=== PATIENT | female | born 1995 | race Hispanic/Latino ===

== ENCOUNTER 2021-10-19 09:05 | Outpatient (CLI) | payer BC, OTHER ==
[2021-10-19 22:44] LABS: SARS-CoV-2 PCR by NAA Not Detected (NotDetected)
== END 2021-10-19 09:06 | disposition home or self-care (01) ==
LOC: CSHLAB 09:05
PROVIDERS: ATTEND Family Medicine
DX: Z20.822 Contact with and (suspected) exposure to COVID-19 (principal)
CPT/HCPCS: U0003; U0005

== ENCOUNTER 2021-10-21 14:51 | Inpatient (IN) | payer BC, OTHER ==
[~2021-10-21 14:51] MED LIST: Bupivacaine 0.25% HCL 30 ML VIAL ONE
[2021-10-21] MEDS ORDERED: Ibuprofen 800 MG TAB PO PRN (23:16)
[2021-10-21] MEDS ORDERED: Diphenoxylate HCl/Atropine Tablet PO PRN (23:16)
[2021-10-21] MEDS ORDERED: Butorphanol Tartrate 1 MG/ML VIAL SLOW IVP PRN (23:16)
[2021-10-21] MEDS ORDERED: hydrALAZINE 20 MG/ML VIAL SLOW IVP PRN (23:16)
[2021-10-21] MEDS ORDERED: Misoprostol 200 MCG TAB PR PRN (23:16)
[2021-10-21] MEDS ORDERED: Lidocaine 1% (PF) 30 ML VIAL SC PRN (23:16)
[2021-10-21] MEDS ORDERED: HYDROcodone/Acetaminophen 5/325 mg Tablet PO PRN (23:16)
[2021-10-21] MEDS ORDERED: Methylergonovine 0.2 MG/ML VIAL IM PRN (23:16)
[2021-10-21] MEDS ORDERED: Ondansetron PF 4 MG/2 ML Vial IVP PRN (23:16)
[2021-10-21] MEDS ORDERED: Acetaminophen 500 MG TAB PO PRN (23:16)
[2021-10-21] MEDS ORDERED: Promethazine HCl 25 MG/ML VIAL IM PRN (23:16)
[2021-10-21] MEDS ORDERED: Penicillin G Potassium 5 MILL.UNITS in Sodium Chloride 0.9% 100 ML IVPB SCH (23:16)
[2021-10-21] MEDS ORDERED: Carboprost 250 MCG/ML AMP IM PRN (23:16)
[2021-10-21 23:17] VITALS: BMI 32.5
[2021-10-21] MEDS: Misoprostol 100 MCG TAB PO SCH (23:56)
[2021-10-21] MEDS ORDERED: NS w/ Oxytocin 30 units 500 ML IV SCH (23:59)
[2021-10-22 00:11] LABS: Hemoglobin 12.2 g/dL (12.0-15.5); Mean Corpuscular HGB CONC 34.4 g/dL (32.0-36.0); Mean Corpuscular Hemoglobin 30.3 pg (27.0-33.0); Mean Corpuscular Volume 88.3 fl (81.6-98.3); Mean Platelet Volume 8.8 fl (7.4-10.4); Platelet Count 308 10x3/uL (150-450); RBC Distribution Width 14.6 % (11.5-14.5); Red Blood Cell (RBC) Count 4.02 10x6/uL (3.90-5.03); White Blood Cell (WBC) Count 11.2 10x3/uL (3.5-10.5)
[2021-10-22 00:32] LABS: Hep B Surf Ag Non-Reactive S/CO (NonReactive); Syphilis Antibody Nonreactive (Nonreactive); Syphilis Antibody Index 0.08 S/CO (<1.00 Non-Reactive)
[2021-10-22] MEDS ORDERED: Fentanyl 2 mcg/Bup 0.1% Cadd 100 ML ONE (05:35)
[2021-10-22] MEDS: Lactated Ringer's 1,000 ML IV SCH ×2 (05:53→09:14)
[2021-10-22] MEDS ORDERED: ePHEDrine Sulfate 50 MG/10 ML VIAL SLOW IVP PRN (06:28)
[2021-10-22] MEDS ORDERED: Promethazine HCl 25 MG/ML VIAL IM PRN ×2 (06:28→10:38)
[2021-10-22] MEDS ORDERED: Ondansetron PF 4 MG/2 ML Vial IVP PRN ×2 (06:28→10:38)
[2021-10-22] MEDS ORDERED: diphenhydrAMINE 50 MG/ML VIAL IVP PRN (06:28)
[2021-10-22] MEDS ORDERED: Lactated Ringer's 500 ML IV PRN (06:28)
[2021-10-22] MEDS ORDERED: Hydrocerin (Eucerin) Cream 120 gm Jar TOP PRN (06:28)
[2021-10-22] MEDS ORDERED: Naloxone HCl 0.4 mg/ml Vial IVP PRN ×2 (06:28)
[2021-10-22] MEDS ORDERED: Acetaminophen 325 MG TAB PO PRN (06:28)
[2021-10-22] MEDS ORDERED: Fentanyl 2 mcg/Bupivacaine 0.1% Cassette 100 ML EPIDURAL SCH (06:30)
[2021-10-22] MEDS ORDERED: Communication Order-Pharmacy FS SCH (06:30)
[2021-10-22] MEDS: NS w/ Oxytocin 30 units 500 ML IV SCH ×2 (08:46→09:13)
[2021-10-22] MEDS: Misoprostol 100 MCG TAB PO SCH (09:13)
[2021-10-22] MEDS: Penicillin G 2.5 MILL.units 2.5 MILL.UNITS in Premix Bag 1 BAG IVPB SCH (09:14)
[2021-10-22] MEDS ORDERED: Benzocaine-Menthol 82.5 ML CAN TOP PRN (10:38)
[2021-10-22] MEDS ORDERED: Lanolin Ointment 7 GM TUBE TOP PRN (10:38)
[2021-10-22] MEDS ORDERED: Milk Of Magnesia 30 ML UDCUP PO PRN (10:38)
[2021-10-22] MEDS ORDERED: Boostrix 0.5 ML (Tdap) VIAL IM ONE (10:38)
[2021-10-22] MEDS ORDERED: NS w/ Oxytocin 30 units 500 ML IV SCH (10:38)
[2021-10-22] MEDS ORDERED: Bisacodyl 10 MG SUPP PR PRN (10:38)
[2021-10-22] MEDS ORDERED: hydrALAZINE 20 MG/ML VIAL SLOW IVP PRN (10:38)
[2021-10-22] MEDS ORDERED: HYDROcodone/Acetaminophen 5/325 mg Tablet PO PRN (10:38)
[2021-10-22] MEDS ORDERED: diphenhydrAMINE 25 MG CAP PO PRN (10:38)
[2021-10-22] MEDS ORDERED: Ibuprofen 800 MG TAB PO SCH (16:00)
[2021-10-22] MEDS: Ferrous Sulfate 325 MG TAB PO SCH (17:34)
[2021-10-22] MEDS: Docusate 100 MG CAP PO SCH (20:55)
[2021-10-23] MEDS ORDERED: Ibuprofen 800 MG TAB PO SCH (06:00)
[2021-10-23] MEDS: Ferrous Sulfate 325 MG TAB PO SCH (07:18)
[2021-10-23 08:20] VITALS: BP 116/75; TEMP 98.1
[2021-10-23] MEDS ORDERED: Prenatal Vitamin 1 TAB PO SCH (09:00)
[2021-10-23] MEDS: Docusate 100 MG CAP PO SCH (09:30)
== END 2021-10-23 13:50 | disposition home or self-care (01) | DRG 807 ==
LOC: CSHLD 22:38 → CSHPED 10-22 12:00
PROVIDERS: ADMIT Family Medicine; ATTEND Family Medicine
PROC: 10E0XZZ Delivery of Products of Conception, External Approach (ICD-10-PCS; principal; 2021-10-22)
PROC: 10907ZC Drainage of Amniotic Fluid, Therapeutic from Products of Conception, Via Natural or Artificial Opening (ICD-10-PCS; 2021-10-22)
PROC: 3E0P7VZ Introduction of Hormone into Female Reproductive, Via Natural or Artificial Opening (ICD-10-PCS; 2021-10-22)
DX: O80 Encounter for full-term uncomplicated delivery (principal); Z37.0 Single live birth; Z3A.39 39 weeks gestation of pregnancy
CPT/HCPCS: 51702; 85027; 86780; 86850; 86900; 86901; 87340; J2590; J7120; S0020